=== PATIENT | female | born 1990 | race Caucasian/White ===

== ENCOUNTER 2022-05-11 11:55 | Emergency (ER) | payer BC, SELFPAY ==
--- NOTE | 2022-05-11 12:54 | ED.GENADULT ---
HPI - General Adult General Chief complaint: Upper Respiratory Infection Stated complaint: cold / flu symptoms Time Seen by Provider: 05/11/22 12:54 Source: patient Mode of arrival: ambulatory Limitations: no limitations History of Present Illness HPI narrative: 31-year-old female patient presents to the [facility] with complaints of cold and flu symptoms for the past 3 days. 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 Patient states she started having left-sided sore throat pain about 3 or 4 days ago and states that last night she woke up in a pool of sweat and today started running a fever of 101. Patient states she has had a slight cough and a lot of body aches does have body aches and between the shoulder blades. Patient denies any chest pain or shortness of breath. Denies any abdominal pain, nausea, vomiting or diarrhea. Related Data Allergies Allergy/AdvReac Type Severity Reaction Status Date / Time No Known Allergies Allergy Verified 05/11/22 12:50 Review of Systems Review of Systems: CONSTITUTIONAL: Positive fever, body exam chills, denies sweats. EYES: Denies visual changes, redness, or discharge. ENT: positive rhinorrhea, congestion, sore throat, denies otalgia. CARDIOVASCULAR: Denies chest pain, palpitations, or edema. RESPIRATORY: positive cough , denies dyspnea. GASTROINTESTINAL: Denies abdominal pain, nausea, vomiting, or diarrhea. GENITOURINARY: Denies dysuria or hematuria. SKIN: Denies rash or itching. MUSCULOSKELETAL: Denies back pain, joint pain, or myalgia. NEUROLOGIC: positive headache, numbness, or weakness. PSYCHIATRIC: Denies anxiety or depression. [facility] Past Medical History Medical History (Updated 05/11/22 @ 13:36 by JONATHON Chowdhury) Gestational diabetes Comments At the time of my signature I agree with nursing past medical history, surgical, social, and family history. There is no relevant family history pertinent to the presenting complaint. Exam Narrative: GENERAL: Well-appearing, well-nourished, and in no acute distress. HEAD: Normocephalic, atraumatic. EYES: PERRLA and EOMI. ENT: Nares with erythema and edema noted bilateral, no rhinorrhea or epistaxis. Mucous membranes moist. posterior pharynx with some erythema. No tonsillar enlargement no exudates or lesions present. Bilateral TMs are clear no erythema for buys the canal. NECK: Supple. No lymphadenopathy CHEST: Slight rhonchi noted to bilateral upper lobes. No respiratory distress. patient able talk clear complete sentences. HEART: Regular rate and rhythm. No murmur heard. Normal peripheral pulses. ABDOMEN: Soft, nontender, nondistended, normal active bowel sounds. EXTREMITIES: Normal range of motion. No edema. SKIN: Warm, dry, no rash. NEURO: No focal deficits. Alert and oriented x3. Course Course Level of Care: Express Care Visit Reevaluation(s) Reevaluation #1: Evaluated patient notified that she has tested negative for strep influenza and COVID in clinic today. We will send out a PCR test for COVID as well as a culture for strep since she is an ICU nurse. Discussed with patient that she will need to stay off work until she has been fever free for 24 hours. Patient verbalized understanding eyes any other questions or concerns at time. Date: 05/11/22 Time: 13:40 Vital Signs Vital signs: Vital signs reviewed. Medical Decision Making MDM Narrative Medical decision making narrative: Plan of care for patient is to swab her today for strep, influenza and COVID. Discussed with patient's the ER will re-evaluate her after the swabs have resulted. Differential Diagnosis Differential Diagnosis: differential diagnosis: Allergic rhinitis, chronic sinusitis, tonsillitis, acute sinusitis, infectious mononucleosis, seasonal influenza, pertussis, diphtheria, meningococcal disease, viral syndrome, viral bronchitis, RSV, COVID-19 Lab Data Labs: Influenza A Screen Negative
[2022-05-11 14:30] VITALS: BP 147/93; PULSE 99; RESP 16; TEMP 36.9; O2SAT 100
[2022-05-11 15:36] LABS: SARS-CoV-2 RNA PCR Negative
== END 2022-05-11 13:45 | disposition home or self-care (01) ==
PROVIDERS: Emergency Provider Nurse Practitioner Family; PCP Family Medicine
DX: J06.9 Acute upper respiratory infection, unspecified (principal); Z20.822 Contact with and (suspected) exposure to COVID-19
CPT/HCPCS: 87081; 87426; 87804; 87880; 99213; C9803; G0463; U0003; U0005

== ENCOUNTER 2024-07-07 00:44 | Observation (INO) | payer BC, SELFPAY ==
[2024-07-07] VITALS (15 sets, daily range): BP systolic 97–142; BP diastolic 40–94; PULSE 97–126; RESP 15–27; TEMP 36.1–36.7; O2SAT 96–99
--- NOTE | ~2024-07-07 | CT_ITS ---
EXAMINATION: CTA chest PE protocol DATE: 07/07/2024 09:18 INDICATION: Syncope and tachycardia TECHNIQUE: Computed tomography (CT) pulmonary angiogram of the chest was performed with 100 mL Omnipa que-350 intravenous contrast. Additional 3D reconstructions utilizing coronal maximum intensity proje ction (MIP) were performed. Automated exposure control and iterative reconstruction technique were em ployed. The dose-length product was 987.19 mGy-cm. COMPARISON: None FINDINGS: No pulmonary embolism. Sensitivity decreased in some of the smaller subsegmental pulmonary arteries d ue to some scattered respiratory motion artifact. Calcified nodules at the right upper lobe along wit h calcified right hilar and mediastinal lymph nodes consistent with old granulomatous disease. Small lung volumes with mosaic attenuation in the dependent lungs likely related to atelectasis with subseg mental regions of more lucent air trapping related to small airway disease. No pleural effusion or pn eumothorax. Heart size is normal. No pericardial effusion. Thoracic aorta is normal in caliber with n o dissection. No pathologically enlarged thoracic lymphadenopathy. Visualized upper abdomen is unrema rkable. Mild thoracic spondylosis. IMPRESSION: 1. No pulmonary embolism. 2. Mosaic attenuation in the lungs with small lung volumes which would favor atelectasis with mild ai r trapping related to small airway disease over pulmonary edema or pneumonia. Reviewed, dictated and finalized at location B. PAN MIXER IMPRESSION: 1. No pulmonary embolism. 2. Mosaic attenuation in the lungs with small lung volumes which would favor at electasis with mild air trapping related to small airway disease over pulmonary edema or pneumonia.
--- NOTE | ~2024-07-07 | CT_ITS ---
EXAMINATION: CT abdomen pelvis w con DATE: 07/07/2024 11:31 INDICATION: Tachycardia, syncope and nausea and vomiting. TECHNIQUE: Computed tomography (CT) of the abdomen and pelvis was performed with 100 mL Omnipaque-350 intravenous contrast. Automated exposure control and iterative reconstruction technique were employe d. The dose-length product was 1484.90 mGy-cm. COMPARISON: None FINDINGS: Lung bases are clear. Heart size is normal. No pericardial or pleural effusion. Liver, gallbladder, s pleen, pancreas, bilateral adrenal glands and left kidney are normal. There is a bipartite right harry l collecting system with separate ureters draining the upper and lower poles which appear to likely d iffuse near the ureterovesicular junction. Contrast-filled bladder is normal. T-shaped IUD in expecte d position within the anteverted uterus. Bilateral adnexa are unremarkable. Fluid throughout nondilat ed large and small bowel consistent with nonspecific diarrhea. No bowel obstruction. Normal appendix. No free intraperitoneal gas or fluid. No pathologically enlarged abdominal or pelvic lymphadenopathy . Bones are unremarkable. IMPRESSION: 1. Fluid throughout the nondilated bowels consistent with nonspecific diarrhea. No other acute intra- abdominal/pelvic process. 2. IUD in expected position within the anteverted uterus. 3. 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 Reviewed, dictated and finalized at location B. NOMETER ASSEMBLER IMPRESSION: 1. Fluid throughout the nondilated bowels consistent with nonspecific diarrhea. No other acute intra-abdominal/pelvic process. 2. IUD in expected position within the anteverted uterus. 3. Partially duplicated right renal collecting system with 2 separate right-janusz ed ureters which appear likely to fuse near the ureterovesicular junction.
--- OUTSIDE RECORDS SUMMARY | 2024-07-07 00:47 | XMS_ITS | Clinical Summary ---
Author Organization [facility] Address [address] [place]: Epic Prelude ADT [place] [id number] Care Team Providers Care Ophthalmic Assistant Name Role Phone Unavailable Primary Care Provider Unavailabl e Social History Tobacco Use Types Packs/Day Years Used Date Smoking Tobacco: Never Assessed Comments Unknown Sex and Gender Information Value Date Recorded Sex Assigned at Not on file Legal Sex Female 11:54 AM CDT Gender Identity Not on file Sexual Orientation Not on file Plan of Treatment Health Maintenance Due Date Last Done Comments DTAP/TDAP/TD VACCINES (1 - Tdap) 2009 HEPATITIS B VACCINES (1 of 3 - 19+ 3-dose series) 2009 CERVICAL CANCER SCREENING 01/04/20232019, 08/19/2018, 08/28/2017 INFLUENZA VACCINE (#1) 2023 HPV VACCINES Aged Out No longer eligi ble based on patient's age to complete this topic PNEUMOCOCCAL VACCINE 0-49 YEARS Aged Out No longer eligible b ased on patient's age to complete this topic
--- NOTE | 2024-07-07 01:56 | PC.NURSE ---
no answer in waiting room for vital signs
[2024-07-07 05:18] LABS: Hemoglobin 14.5 g/dL (12.0-15.0); Mean Corpuscular HGB Conc 33.7 g/dl (32-36); Mean Corpuscular Hemoglobin 28.3 pg (26-34); Mean Corpuscular Volume 83.8 fl (80-100); Mean Platelet Volume 10.3 fl (7.4-10.4); Platelet Count Result 230 k/mm3 (150-375); Red Blood Count 5.13 M/mm3 (4.2-5.4); Red Cell Distribution Width 12.6 % (11.5-14.5); White Blood Count 6.8 K/mm3 (4.5-10.0)
[2024-07-07] MEDS: SODIUM CHLORIDE 0.9% IV 1,000 ML 999 ML IV CONT ×3 (05:21→10:10)
[2024-07-07 05:37] LABS: Alanine Aminotransferase 34 U/L (6-35); Albumin Level 4.8 g/dL (3.5-5.1); Alkaline Phosphatase 70 U/L (38-126); Anion Gap 14 mmol/L (4-12); Aspartate Amino Transferase 22 U/L (14-36); Bilirubin,Total 0.8 mg/dL (0.2-1.3); Blood Urea Nitrogen 14 mg/dL (7-17); Calcium 9.2 mg/dL (8.4-10.2); Carbon Dioxide 26 mmol/L (22-30); Chloride 101 mmol/L (98-107); Estimated CRCL calculation 93 ml/min; Estimated Glomerular Filt Rate > 60; Glucose 135 mg/dL (65-110); Lipase 97 U/L (23-300); Sodium 141 mmol/L (137-145)
[2024-07-07 05:41] LABS: Band Neutrophils Percent 6 % (0-6); Lymphocytes Percent Manual 3 % (18-44); Monocytes Absolute Manual 0.27 K/mm3 (0.1-0.90); Monocytes Percent Manual 4 % (3-9); Neutrophils Absolute Manual 6.32 K/mm3 (1.7-7.2); Neutrophils Percent Manual 87 % (46-73); Platelet Estimate Adequate (Adequate); Schistocytes None Seen; Total Cells Counted 100
[2024-07-07 06:06] LABS: Influenza A QL RT-PCR Negative (Negative); Influenza B QL RT-PCR Negative (Negative); RSV RNA, RT-PCR Negative (Negative); SARS-CoV-2 RNA PCR Negative (Negative)
[2024-07-07 06:31] LABS: BEDSIDEPREGUCG Negative (Negative)
[2024-07-07 06:31] LABS: Add Urine Microscopic? NO; Appearance Urine Clear (Clear); Bilirubin Urine Negative (Negative); Blood Urine Negative (Negative); Color Urine Yellow (Yellow); Glucose Urine UA Negative (Negative); Ketones Urine Negative (Negative); Leukocyte Esterase Ur Negative LEU/UL (Negative); Nitrate Urine Negative (Negative); Protein Urine Negative (Negative); Specific Grav Ur 1.021 (1.001-1.035); Urobilinogen Urine 0.2 mg/dL (<2.0); pH Urine 8.5 (5.0-9.0)
--- NOTE | 2024-07-07 07:06 | ECG_ITS ---
Test Date: 2024-07-07 07:47:42 Measurements Intervals [place] Rate: 109 P: 85 IA: 151 QRS: 31 QRSD: 81 T: -4 QT: 330 QTc: 446 Interpretive Statements SINUS TACHYCARDIA INCOMPLETE RIGHT BUNDLE BRANCH BLOCK MODERATE T-WAVE ABNORMALITY, CONSIDER ANTERIOR ISCHEMIA [-0.1+ mV T WAVE IN V3/V4] No previous ECG available for comparison Electronically Signed On 07-07-2024 15:46:30 [address] DRIVER by Berenice Moura M.D.
--- NOTE | 2024-07-07 07:21 | ED_ITS ---
HPI - General Adult General Chief complaint: Nausea/Vomiting/Diarrhea Stated complaint: vomiting, syncope Time Seen by Provider: 07/07/24 06:59 History of Present Illness HPI narrative: 33-year-old female presented emergency department for evaluation for nausea vomiting and a syncopal episode. Patient reports that she was having increased symptoms of bloating and lightheadedness. Patient states that while she was in the shower she had a near syncopal episode. Patient reports after vomiting she had a 2nd syncopal episode. Patient denies any associated abdominal pain. Patient denies any medication changes. Patient denies any cardiac history. Patient states he does feel improved at this time it does still have some mild nausea. Related Data Home Medications ?Medication ?Instructions ?Recorded ?Confirmed ?Last Taken ?Type No Home Medications 07/07/24 07/07/24 Unknown History Allergies Allergy/AdvReac Type Severity Reaction Status Date / Time cephalexin (From Keflex) Allergy Hives Verified 07/07/24 13:25 Review of Systems 2 Review of Systems: All systems reviewed & are unremarkable except as noted in HPI and below PMFSH Past Medical History Medical History (Updated 07/07/24 @ 18:10 by Aric Stringer MD) Gestational diabetes Social History Social History Smoking status: Never smoker Alcohol intake: never Substance use: never Substance use type: does not use Do You Feel Safe in your Home?: Yes Lack of Transportation: No Lack of Food: Never True Current Housing: I Have Housing Concerned About Future Housing: No Difficulty Paying Gas/Electric Bills: No Difficulty Paying for Meds: No Currently Unemployed: No Education: Bachelor's Degree Difficulty w/ Childcare or Family Care: No Spiritual care concerns: No Exam 2 Narrative: APPEARANCE: Well appearing, no pain, no distress, well-nourished. HEAD: normocephalic, atraumatic. EYES: PERRLA/EOMI, conjunctivae clear. NOSE: Normal no drainage EARS:TMS clear with good light reflex. THROAT: Pharynx clear, no exudate. NECK: Supple. No adenopathy, no masses. RESPIRATORY: Airway patent, respirations nonlabored. Clear to auscultation bilaterally, no rales, rhonchi, wheezing. CARDIOVASCULAR: Tachycardia ABDOMINAL: Soft, nontender, nondistended, normal bowel sounds MUSCULOSKELETAL: Moves all extremities. Strength/ROM intact, No edema, No calf tenderness. NEURO: Alert. Cranial nerves II through XII intact. Good gait. Good coordination SKIN: Warm, dry. Normal Color Course Vital Signs Vital signs: Vital Signs Temperature 97.8 F 07/07/24 00:48 Pulse Rate 102 H 07/07/24 00:48 Respiratory Rate 18 07/07/24 00:48 Blood Pressure 140/90 07/07/24 00:48 Pulse Oximetry 99 07/07/24 00:48 Oxygen Delivery Room Air 07/07/24 00:48 Temperature 97.4 F L 07/07/24 14:00 Pulse Rate 118 H 07/07/24 16:00 Respiratory Rate 18 07/07/24 14:00 Blood Pressure 142/85 H 07/07/24 14:00 Pulse Oximetry 98 07/07/24 14:00 Oxygen Delivery Room Air 07/07/24 13:34 Medical Decision Making MDM Narrative Medical decision making narrative: 33-year-old female present to the emergency department for evaluation for nausea vomiting and to syncopal episodes. Patient remained persistently tachycardic after 3 L of IV fluids. Patient is afebrile with no leukocytosis and hemoglobin of 14.5. Prior to rehydration patient did have an anion gap of 14 at glucose of 135. Patient did not have any ketones in her urine low concern for DKA. Patient was negative for influenza RSV and for COVID. CTA for chest was negative for pulmonary embolism. Hospitalist requested that a CT abdomen pelvis be ordered and this was negative. I discussed the patient's results with her and did recommend admission. Case was discussed with hospitalist patient was accepted to [facility]. Differential Diagnosis Differential Diagnosis: COVID, RSV, influenza, pulmonary embolism, dehydration Vital Signs Vital Signs: Vital Signs Temperature 97.8 F 07/07/24 00:48 Pulse Rate 102 H 07/07/24 00:48 Respiratory Rate 18 07/07/24 00:48 Blood Pressure 140/90 07/07/24 00:48 Pulse Oximetry 99 07/07/24 00:48 Oxygen Delivery Room Air 07/07/24 00:48 Temperature 97.4 F L 07/07/24 14:00 Pulse Rate 118 H 07/07/24 16:00 Respiratory Rate 18 07/07/24 14:00 Blood Pressure 142/85 H 07/07/24 14:00 Pulse Oximetry 98 07/07/24 14:00 Oxygen Delivery Room Air 07/07/24 13:34 Lab Data Lab results reviewed: Yes I reviewed the patient's lab results. 07/07/24 05:13 07/07/24 05:13 Labs: Lab Results 07/07/24 07/07/24 07/07/24 Range/Units 05:13 05:23 06:24 WBC 6.8 (4.5-10.0) K/mm3 RBC 5.13 (4.2-5.4) M/mm3 Hgb 14.5 (12.0-15.0) g/dL Hct 43.0 (37.0-47.0) % MCV 83.8 (80-100) fl MCH 28.3 (26-34) pg MCHC 33.7 (32-36) g/dl RDW 12.6 (11.5-14.5) % Plt Count 230 (150-375) k/mm3 MPV 10.3 (7.4-10.4) fl Immature Gran % (Auto) Not Reportable Neut % (Auto) Not Reportable Lymph % (Auto) Not Reportable [place] % (Auto) Not Reportable Eos % (Auto) Not Reportable Baso % (Auto) Not Reportable Lymph # (Auto) Not Reportable [place] # (Auto) Not Reportable Eos # (Auto) Not Reportable Baso # (Auto) Not Reportable Abs Immat Gran (auto) Not Reportable Absolute Neuts (auto) Not Reportable Absolute Nucleated RBC Not Reportable Total Counted 100 Neutrophils % (Manual) 87 H (46-73) % Band Neutrophils % 6 (0-6) % Lymphocytes % (Manual) 3 L (18-44) % Monocytes % (Manual) 4 (3-9) % Nucleated RBC % Not Reportable Abs Neuts (Manual) 6.32 (1.7-7.2) K/mm3 Abs Lymphs (Manual) 0.20 L (1.1-4.5) K/mm3 Abs Monocytes (Manual) 0.27 (0.1-0.90) K/mm3 Platelet Estimate Adequate (Adequate) Schistocytes None seen Sodium 141 (137-145) mmol/L Potassium 4.0 (3.4-5.0) mmol/L Chloride 101 (98-107) mmol/L Carbon Dioxide 26 (22-30) mmol/L Anion Gap 14 H (4-12) mmol/L BUN 14 (7-17) mg/dL Creatinine 0.88 (0.7-1.0) mg/dL Estim Creat Clear Calc 93 ml/min Estimated GFR > 60 (59 - ) Glucose 135 H (65-110) mg/dL Calcium 9.2 (8.4-10.2) mg/dL Total Bilirubin 0.8 (0.2-1.3) mg/dL AST 22 (14-36) U/L ALT 34 (6-35) U/L Alkaline Phosphatase 70 (38-126) U/L Total Protein 8.0 (6.3-8.2) g/dL Albumin 4.8 (3.5-5.1) g/dL Lipase 97 (23-300) U/L TSH (Reflex) 0.307 L (0.465-4.68) uIU/mL Free T4 1.22 (0.78-2.19) ng/dL Total T3 1.32 (0.97-1.69) NG/ML Urine Color Yellow (Yellow) Urine Appearance Clear (Clear) Urine pH 8.5 (5.0-9.0) Ur Specific [place] 1.021 (1.001-1.035) Urine Protein Negative (Negative) mg/dL Urine Glucose (UA) Negative (Negative) mg/dL Urine Ketones Negative (Negative) mg/dL Ur Blood (Man) Negative (Negative) Urine Nitrate Negative (Negative) Urine Bilirubin Negative (Negative) Urine Urobilinogen 0.2 (<2.0) mg/dL Leukocyte Esterase Rfl Negative (Negative) RONDA/UL POC Urine HCG, Qual (Negative) Influenza A (RT-PCR) Negative (Negative) Influenza B (RT-PCR) Negative (Negative) RSV (RT-PCR) Negative (Negative) SARS-CoV-2 RNA (RT-PCR) Negative (Negative) 07/07/24 Range/Units 06:29 WBC (4.5-10.0) K/mm3 RBC (4.2-5.4) M/mm3 Hgb (12.0-15.0) g/dL Hct (37.0-47.0) % MCV (80-100) fl MCH (26-34) pg MCHC (32-36) g/dl RDW (11.5-14.5) % Plt Count (150-375) k/mm3 MPV (7.4-10.4) fl Immature Gran % (Auto) Neut % (Auto) Lymph % (Auto) [place] % (Auto) Eos % (Auto) Baso % (Auto) Lymph # (Auto) [place] # (Auto) Eos # (Auto) Baso # (Auto) Abs Immat Gran (auto) Absolute Neuts (auto) Absolute Nucleated RBC Total Counted Neutrophils % (Manual) (46-73) % Band Neutrophils % (0-6) % Lymphocytes % (Manual) (18-44) % Monocytes % (Manual) (3-9) % Nucleated RBC % Abs Neuts (Manual) (1.7-7.2) K/mm3 Abs Lymphs (Manual) (1.1-4.5) K/mm3 Abs Monocytes (Manual) (0.1-0.90) K/mm3 Platelet Estimate (Adequate) Schistocytes Sodium (137-145) mmol/L Potassium (3.4-5.0) mmol/L Chloride (98-107) mmol/L Carbon Dioxide (22-30) mmol/L Anion Gap (4-12) mmol/L BUN (7-17) mg/dL Creatinine (0.7-1.0) mg/dL Estim Creat Clear Calc ml/min Estimated GFR (59 - ) Glucose (65-110) mg/dL Calcium (8.4-10.2) mg/dL Total Bilirubin (0.2-1.3) mg/dL AST (14-36) U/L ALT (6-35) U/L Alkaline Phosphatase (38-126) U/L Total Protein (6.3-8.2) g/dL Albumin (3.5-5.1) g/dL Lipase (23-300) U/L TSH (Reflex) (0.465-4.68) uIU/mL Free T4 (0.78-2.19) ng/dL Total T3 (0.97-1.69) NG/ML Urine Color (Yellow) Urine Appearance (Clear) Urine pH (5.0-9.0) Ur Specific [place] (1.001-1.035) Urine Protein (Negative) mg/dL Urine Glucose (UA) (Negative) mg/dL Urine Ketones (Negative) mg/dL Ur Blood (Man) (Negative) Urine Nitrate (Negative) Urine Bilirubin (Negative) Urine Urobilinogen (<2.0) mg/dL Leukocyte Esterase Rfl (Negative) RONDA/UL POC Urine HCG, Qual Negative (Negative) Influenza A (RT-PCR) (Negative) Influenza B (RT-PCR) (Negative) RSV (RT-PCR) (Negative) SARS-CoV-2 RNA (RT-PCR) (Negative) Imaging Data Radiologist's impression: Impressions Chest CTA 07/07/24 09:26 IMPRESSION: 1. No pulmonary embolism. 2. Mosaic attenuation in the lungs with small lung volumes which would favor atelectasis with mild air trapping related to small airway disease over pulmonary edema or pneumonia. Discharge Plan Discharge Clinical Impression: Syncope, Tachycardia, Gastroenteritis Patient Disposition: Still a Patient Condition: Stable
[2024-07-07] MEDS: ONDANSETRON INJ 4 MG/2 ML VIAL IV PUSH (07:23)
--- OUTSIDE RECORDS SUMMARY | 2024-07-07 07:29 | XMS_ITS | Encounter Summary ---
Author Organization [facility] Address [address] [place] [address] Care Team Providers Care Progressive Care Manager Name Role Phone Carmela Jacinto [facility] Primary Care Provider + Encounter Details Date Type Department Care Team (Late st Contact Info) Description 07/16/2023 [employer] Message Enc [facility] Family & Internal Medicine [address] [phone] Carmela Jacinto, [facility] [id number] [place] [id number] [employer] Social History Tobacco Use Types Packs/Day Years Used Date Smoking Tobacco: Never Smokeless Tobacco: Never Alcohol Use Standard Drinks/Week Comments Not Currently 0 (1 standard drink = 0.6 oz pur e alcohol) AUDIT-C Answer Date Recorded Frequency of Alcohol Consumption 2-4 times a fri08/01/2020 Average Number of Drinks Not on file 021 Frequency of Binge Drinking Not on file 07/05 PHQ-2 Answer Date Recorded Patient Health Questionnaire-2 Score 0 07/07/2023 Comments No Sex and Gender Information Value Date Recorded Sex Assigned at Female 07/04/2023 12:36 PM ASSOCIATE Legal Sex Female 8:25 PM CDT Gender Identity Female 07/04/2023 12:36 PM ASSOCIATE Sexual Orientation Straight 07/04/2023 12 :36 PM ASSOCIATE documented as of this encounter Functional Status * RETIRED Are you deaf or do you have serious difficulty hearing Answer Date of Assessment Author Status No 09/19/2020 11:48 AM CDT Acti ve * RETIRED Are you blind or do you have serious difficulty seeing, even when wearing glasses? Answer Date of Assessment Author Status No 09/19/2020 11:48 AM CDT Acti ve * Do you have serious difficulty walking or climbing stairs? Answer Date of Assessment Author Status No 09/19/2020 11:48 AM CDT Kendra Bledsoe R N Active * Do you have difficulty dressing or bathing? Answer Date of Assessment Author Status No 09/19/2020 11:48 AM CDT Kendra Bledsoe R N Active * Because of a physical, mental, or emotional condition, do you have difficulty doing errands alone such as visiting a doctor's office or shopping? Answer Date of Assessment Author Status No 09/19/2020 11:48 AM CDT Kendra Bledsoe R N Active documented as of this encounter Mental Status * Because of a physical, mental, or emotional condition, do you have serious difficulty concentrating, remembering, or making decisions? Answer Entry Date Author Status No 09/19/2020 11:48 AM CDT Kendra Bledsoe R N Active documented in this encounter Progress Notes * NATAN Beyer - 07/23/2023 5:10 PM CDT Since it would be for weight loss, she would have to do Zepbound. It may not be covered by her insurance or need a prior authorization. You can try 2.5 mg sq inj once weekly x 4 weeks, qty 2 mL, no refills. Smaller/independent pharmacies may have an easier time getting the saxenda. Alternatively, you can sometimes find it through mail order or [facility]. * Kari Rodas RN - 07/23/2023 4:21 PM CDT Please advise. documented in this encounter Plan of Treatment Not on file documented as of this encounter Goals Goal Patient Goal Type Associated Problems Recent Progress Patient-Stated? Author Safety Patient/family will have appropriate support at home upon discharge Brianna Jansen RN documented as of this encounter Visit Diagnoses Not on filedocumented in this encounter Additional Health Concerns Infection Onset Date Last Indicated Resolved Time COVID-19 Rule Out 11/18/2023 11/18/2023 11/18/2023 2:45 PM CDT documented as of this encounter Care Teams Progressive Care Manager Relationship Specialty Start Date End Date Carmela Jacinto, [employer] [id number] [facility], [address] [place] [address] PCP - General Nurse Practitioner Family 12/26/22 documented as of this encounter
--- OUTSIDE RECORDS SUMMARY | 2024-07-07 07:29 | XMS_ITS | Clinical Summary ---
Author Organization [facility] Address [address] [place] [address] Care Team Providers Care Chemist Water Purification Name Role Phone Carmela Jacinto [facility] Primary Care Provider + Allergies Active Allergy Reactions Criticality Noted Date Comments Cephalexin Rash Low 06/03/2018 Medications multi vitamin/minerals (THERA-M ENHANCED) tablet Take 1 tablet by mouth daily. Active Multiple Vitamins-Mineral s (MEGAVITE FRUITS & VEGGIES OR) Take 1 tablet by mouth daily. Active liraglutide, Weight Management, (SAXENDA) 18 MG/3ML injectionIndicat ions:Class 3 severe obesity due to excess calories without serious comorbidity with body mass index (BMI) of 40.0 to 44.9 in adult ([facility]) Inject 0.1-0.5 mLs (0.6-3 mg total) into the skin daily. Start With: 0.6 mg (0.1 mL) SC once daily x7 days, then 1.2 mg (0.2 mL) SC once daily x7 days, then 1.8 mg (0.3 mL) SC once daily x 7 days, then 2.4 mg (0.4 mL) SC once daily x 7 days, then 3 mg (0.5 mL) SC once daily. 5 pen. 1 Active Additional Information Patient not taking.Reported on 11/18/2023 Insulin Pen Needle (BD PEN NEEDLE SHAYNE 2ND GEN) 32G X 4 MM MiscIndications: Class 3 severe obesity due to excess calories without serious comorbidity with body mass index (BMI) of 40.0 to 44.9 in adult ([facility]) 1 each by Does not apply route daily. 100 each 3 4 Active Additional Information Patient not taking.Reported on 11/18/2023 azithromycin (ZITHROMAX) 250 MG tabletIndication s:Bronchitis Take 2 tablets by mouth on day one then 1 daily for four days. 6 tablet 4 Active benzonatate (TESSALON PERLES) 100 MG capsuleIndicatio ns:Bronchitis Take 1 capsule (100 mg total) by mouth 3 (three) times daily as needed for Cough. 40 capsule 4 Active Active Problems No known active problems Resolved Problems Problem Noted Date Diagnosed Date Resolved Date ([facility]) 09/19/2020 06/30/19 23 History of mastitis 07/15/2018 06/30/19 23 Abnormal ultrasound of breast 07/15/2018 06/30/2022 Mastitis 06/03/2018 07/15/2018 Axillary lump, right 06/03/2018 019 Rash due to allergy 06/03/2018 06/30/19 23 Immunizations Name Administration Dates Next Due Afluria 36 MONTHS+ (Prefille d Syringe IIV4) 02/22/2019 Influenza (Generic) 01/22/2013 Influenza Adult (Generic) 02/21/2023,05/2021,03/10/2020, 015 Tdap (Generic) 07/04/2020,07/13/2018 Family History Medical History Relation Comments None Brother None Daughter Hypertension Father Hypertension Maternal Grandfather Narcolepsy Maternal Grandfather Cancer Maternal Grandmother Brain Lymph jenni Lymphoma Maternal Grandmother metastatize d to brain Depression Mother Hypertension Mother Diabetes Paternal Grandfather Hypertension Paternal Grandfather Dementia Paternal Grandmother Depression Paternal Grandmother Diabetes Paternal Grandmother Hypertension Paternal Grandmother Kidney Disease Paternal Grandmother small kidne y; CKD3 Relation Status Comments Brother Alive Daughter Alive Father Alive Maternal Grandfather Alive Maternal Grandmother Mother Alive Paternal Grandfather Alive Paternal Grandmother Alive Social History Tobacco Use Types Packs/Day Years Used Date Smoking Tobacco: Never Smokeless Tobacco: Never Tobacco Cessation:Counseling Given: No Alcohol Use Standard Drinks/Week Comments Not Currently 0 (1 standard drink = 0.6 oz pur e alcohol) AUDIT-C Answer Date Recorded Frequency of Alcohol Consumption 2-4 times a mon th 08/01/2020 Average Number of Drinks Not on file 021 Frequency of Binge Drinking Not on file 07/05 PHQ-2 Answer Date Recorded Patient Health Questionnaire-2 Score 0 07/07/2023 Comments No Sex and Gender Information Value Date Recorded Sex Assigned at Female 07/04/2023 12:36 PM POLICE SERVICE TECHNICIAN Legal Sex Female 8:25 PM CDT Gender Identity Female 07/04/2023 12:36 PM POLICE SERVICE TECHNICIAN Sexual Orientation Straight 07/04/2023 12 :36 PM POLICE SERVICE TECHNICIAN Last Filed Vital Signs Vital Sign Reading Time Taken Comments Blood Pressure 136/82 11/18/2023 2:14 PM CDT Pulse 93 11/18/2023 2:08 PM CDT Temperature 36.4 C (97.6 F) 11/18/2023 2:08 PM CDT Respiratory Rate 18 11/18/2023 2:08 PM CDT Oxygen Saturation 99% 11/18/2023 2:08 PM CDT Inhaled Oxygen Concentration - - Weight 110.5 kg (243 lb 9.6 oz) 11/18/2023 2:08 PM CDT Height 157.5 cm (5' 2 ) 11/18/2023 2:08 PM CDT Body Mass Index 44.56 11/18/2023 2:08 PM CDT Plan of Treatment Health Maintenance Due Date Last Done Comments Hepatitis B Vaccines (1 of 3 - 19+ 3-dose series) 2009 Cervical Cancer Screening Pap with HPV Testing (Age 30 to 64) Every 5 Years 2020 Cervical Cancer Screening Pap Smear (Age 30 to 64) Every 3 Years 01/04/2023 01/05/2020 Cervical Cancer Screening with HPV 01/04/2023 COVID-19 Vaccine ( season) 2024 Influenza Adult (#1) 2024 02/21/2023, 02/02/2022, 03/10/2020, Additional history exists PHQ-2 (Physician [place]) 05/05/2024 07/07/2023 Annual Physical 07/06/2024 07/07/2023, 06/20/2022 DTaP, Tdap and Td Vaccines (3 - Td or Tdap) 07/04/2030 07/04/2020, 07/13/2018 Hepatitis C Completed 07/07/2023 HPV Vaccines Aged Out No longer eligi ble based on patient's age to complete this topic Meningococcal B Vaccine Aged Out No l onger eligible based on patient's age to complete this topic Meningococcal Vaccine Aged Out No dax eunice eligible based on patient's age to complete this topic Pneumococcal Vaccine: Pediatrics (0 to 5 Years) and At-Risk Patients (6 to 64 Years) Aged Out No longer eligible based on patient's age to complete this topic RSV Immunizations Under 20 Months Aged Out No longer eligible based on patient's age to complete this topic Goals Goal Patient Goal Type Associated Problems Recent Progress Patient-Stated? 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 Procedure Name Priority Date/Time Associated Diagnosis Comments HEPATITIS C ANTIBODY Routine 07/07/2023 11:36 AM POLICE SERVICE TECHNICIAN Encounter for hepatitis C screening test for low risk patient OUTSIDE CYTOPATH CERV/VAG INTERPRET (PAP) (SCAN ORDER) 01/05/2020 from Last 3 Months or Most Recently Relevant to Health Maintenance Results * HEPATITIS C AB ([facility] ONLY) (07/07/2023 11:36 AM POLICE SERVICE TECHNICIAN) HEPATITIS C AB NON-REACTI VE NON-REACTI VE 07/07/2023 8:16 PM POLICE SERVICE TECHNICIAN [facility] 07/07/2023 11:3 6 AM POLICE SERVICE TECHNICIAN us Carmela Jacinto [facility] Final Re sult [facility] [address] [place] [address], [place] [phone] * PAP SMEAR (01/05/2020) 01/05/2020 us [facility] Scanned SCANNING Final Resu lt from Last 3 Months or Most Recently Relevant to Health Maintenance Insurance Advance Directives * Full Code (Latest Code Status on File) Date Activated Date Inactivated Comments 09/19/2020 2:26 PM 09/21/2020 3:43 PM Care Teams Chemist Water Purification Relationship Specialty Start Date End Date Carmela Jacinto, DEMOLITION ENGINEER-BC [id number], [address] [place] [address] PCP - General Nurse Practitioner Family 12/26/22
--- OUTSIDE RECORDS SUMMARY | 2024-07-07 07:29 | XMS_ITS | Clinical Summary ---
Author Organization [facility] Address [address] [place]: Epic Prelude ADT [place] [id number] Care Team Providers Care Professional Shopper Name Role Phone Unavailable Primary Care Provider [...]
--- NOTE | 2024-07-07 09:52 | PC.NURSE ---
Ambulated pt while monitoring pulse ox and HR. pt's maintained a Sp02 of 98% or greater. pt's HR maintained 130's-140's. Reported to
[2024-07-07] MEDS: KETOROLAC 15 MG/ML VIAL (*BKC) (10:10)
[2024-07-07 11:07] LABS: Thyroid Stimulating Hormone Reflex 0.307 uIU/mL (0.465-4.68)
[2024-07-07 11:34] LABS: Free T4 Free Thyroxine Reflex 1.22 ng/dL (0.78-2.19)
[2024-07-07] MEDS: LACTATED RINGERS 1,000 ML 125 ML IV CONT ×2 (12:33→22:54)
[2024-07-07 12:48] LABS: Total Triiodothyronine (T3) 1.32 NG/ML (0.97-1.69)
--- NOTE | 2024-07-07 13:10 | ADMGEN ---
This patient, Brianna Peck, was admitted to Medical Room 246-01. Patient/family oriented to hospital policies and general routines including ID bracelet, bed and alarms, visiting hours, pain management, procedures, bathroom and other care routines, personal items, smoking policy, room service/diet, and visiting hours. Information on how to activate the Rapid Response Team has been discussed. Patient/Family are encouraged to report perceived risks to care and to ask questions if they do not understand what they are told or what they should do.
--- NOTE | 2024-07-07 16:06 | P.HP_ITS ---
H&P: HPI History of Present Illness Date/Time: 07/07/24 16:06 Chief Complaint: Vomiting and syncope Narrative: 33-year-old female past medical history of asthma presented to urine account of 2 episodes of syncope and vomiting. Patient reported she was in her usual state of health until yesterday when she had a huge 3 episodes of vomiting followed by 2 episodes of syncope. For this she was brought to the ER for further evaluation and care. Prior to that she denies any chest pain or shortness of breath no coughing no fever no abdominal pain no dysuria no focal symptoms. She also reported she has been havin diarrhea since today and had 2 episodes. ER eval notable for HR 126, BP 139/94. Labs unremarkable, CT chest showed and showed was like attenuation in the lungs with small lung volumes which would favor atelectasis with mild air trapping related to small airway disease overt pulmonary edema or pneumonia. CT abdomen and pelvis showed fluid throughout to nondilated most consistent with nonspecific diarrhea. Patient was given 3 L of fluids still tachycardic. EKG showed ST no acute changes. Review of Systems Review of Systems: All other systems were reviewed and negative except as noted in the HPI above [facility] Past Medical History Medical History (Updated 07/07/24 @ 16:15 by Pedro Samayoa MD) Gestational diabetes Social History Social History Smoking status: Never smoker Alcohol intake: never Substance use: never Substance use type: does not use Do You Feel Safe in your Home?: Yes Lack of Transportation: No Lack of Food: Never True Current Housing: I Have Housing Concerned About Future Housing: No Difficulty Paying Gas/Electric Bills: No Difficulty Paying for Meds: No Currently Unemployed: No Education: Bachelor's Degree Difficulty w/ Childcare or Family Care: No Spiritual care concerns: No Meds Home Medications and Allergies Home Medications ?Medication ?Instructions ?Recorded ?Confirmed ?Type No Home Medications 07/07/24 07/07/24 History Allergies Allergy/AdvReac Type Severity Reaction Status Date / Time cephalexin (From Keflex) Allergy Hives Verified 07/07/24 13:25 Vital Signs Vital Signs - 24 hr 07/07/24 00:48 07/07/24 05:15 07/07/24 05:17 Temperature 97.8 F 98.1 F Pulse Rate 102 H 114 H Respiratory Rate 18 15 Blood Pressure 140/90 129/84 Pulse Oximetry 99 96 96 Oxygen Delivery Room Air Room Air 07/07/24 06:11 07/07/24 06:24 07/07/24 06:25 Temperature Pulse Rate 105 H 110 H 115 H Respiratory Rate 16 Blood Pressure 137/88 118/60 135/70 Pulse Oximetry 99 Oxygen Delivery 07/07/24 06:26 07/07/24 07:02 07/07/24 08:02 Temperature Pulse Rate 125 H 114 H 105 H Respiratory Rate 27 H 22 H Blood Pressure 137/92 H 121/81 124/62 Pulse Oximetry 99 Oxygen Delivery 07/07/24 09:50 07/07/24 12:34 07/07/24 13:34 Temperature Pulse Rate 126 H 125 H Respiratory Rate 20 19 Blood Pressure 113/83 139/94 H Pulse Oximetry 98 97 Oxygen Delivery Room Air 07/07/24 14:00 Temperature 97.4 F L Pulse Rate 119 H Respiratory Rate 18 Blood Pressure 142/85 H Pulse Oximetry 98 Oxygen Delivery Exam Narrative: General: alert and comfortable Eyes: EOMI, PERRLA ENNT External ears normal, Neck is supple, no masses, Respiratory systems: Clear to auscultation Cardiovascular S1, S2, normal rhythm, no murmur, rub, or gallop; no thrill or palpable murmurs on palpation. Gastrointestinal: soft, non-tender, and non-distended abdomen with no masses; BS present Skin: no rash, lesions, ulcerations, subcutaneous nodules or induration Musculoskeletal: no abnormality and no tenderness, normal ROM Neurologic: Alert and oriented x3, non focal Mental Status Exam: normal affect H&P: Results Labs Labs: Short CBC 07/07/24 Range/Units 05:13 WBC 6.8 (4.5-10.0) K/mm3 Hgb 14.5 (12.0-15.0) g/dL Hct 43.0 (37.0-47.0) % Plt Count 230 (150-375) k/mm3 BMP 07/07/24 05:13 Sodium 141 Potassium 4.0 Chloride 101 Carbon Dioxide 26 BUN 14 Creatinine 0.88 Glucose 135 H Calcium 9.2 Liver Function 07/07/24 Range/Units 05:13 Total Bilirubin 0.8 (0.2-1.3) mg/dL AST 22 (14-36) U/L ALT 34 (6-35) U/L Alkaline Phosphatase 70 (38-126) U/L Albumin 4.8 (3.5-5.1) g/dL Urine 07/07/24 Range/Units 06:24 Urine Color Yellow (Yellow) Urine Appearance Clear (Clear) Urine pH 8.5 (5.0-9.0) Ur Specific [place] 1.021 (1.001-1.035) Urine Protein Negative (Negative) mg/dL Urine Glucose (UA) Negative (Negative) mg/dL Assessment and Plan Assessment and plan (1) Syncope: Code(s): R55 - Syncope and collapse Status: Acute (2) Tachycardia: Code(s): R00.0 - Tachycardia, unspecified Status: Acute Plan Syncope Severe likely from dehydration Preceded by vomiting Continue IV fluid, apical ordered. EKG shows sinus tachycardia no acute changes. Cardiology consulted. Possible CT scan showed a possible small airway disease versus pulmonary edema Since patient is on which were this time. Sputum and blood culture, MRSA and procalcitonin Levaquin Monitor Tachycardia EKG showed ST ?arrhythmia cardiology consulted History of asthma Monitor DVT prophylaxis subQ Lovenox. Patient's Surrogate decision maker is , Vernon Peck
[2024-07-07] MEDS: levoFLOXacin 750 MG/D5W 150 ML 750 MG/150 ML BAG 100 MG IVPB (16:39)
[2024-07-07 17:59] LABS: MRSA (PCR) NOT DETECTED (NOT DETECTE)
[2024-07-07 19:03] LABS: Procalcitonin 0.4 ng/mL
[2024-07-08] VITALS (7 sets, daily range): BP systolic 123–128; BP diastolic 73–74; PULSE 75–85; RESP 18; TEMP 36.5–36.6; O2SAT 98–99
--- NOTE | 2024-07-08 | ECHO_ITS ---
Patient Info Name: Brianna Peck Age: 33 years : 1990 Gender: Female Ht: 62 in Wt: 243 lbs BSA: 2.26 m2 HR: 83 bpm BP: 128 / 74 mmHg Heart Rhythm: Sinus Arrhythmia Exam Date: 07/08/2024 10:51 AM Exam Location: Echo Lab Patient Status: Inpatient Admit Date: 07/07/2024 Staff Ordering Physician: Pedro Samayoa MD Science Instructor: Bria Avalos RDCS Attending Provider: Pedro Samayoa MD Exam Type: CA echo doppler color flow Study Info Indications - Arrythmia Complete two-dimensional, color flow and Doppler transthoracic echocardiogram is performed. Summary 1. Complete two-dimensional, color flow and Doppler transthoracic echocardiogram is performed. 2. There is normal biventricular size and systolic function. 3. There is no significant valvular disease. Left Ventricle The left ventricle is normal in size and systolic function. The left ventricular ejection fraction is visually estimated to be 55-60%. Right Ventricle The right ventricle is normal in size and systolic function. Left Atria The left atrium is normal size. Right Atria The right atrium is normal size. Atrial Septum The atrial septum is not well visualized. Aortic Valve It is difficult to visualize the aortic valve however by color Doppler gradients, it appears to be a normal functioning valve. Pulmonic Valve The pulmonic valve is grossly normal. There is no pulmonic valve regurgitation. Mitral Valve The mitral valve is normal. There is no mitral regurgitation. Tricuspid Valve The tricuspid valve is normal. There is trace tricuspid regurgitation. Pericardium/Pleural Pericardium is normal in appearance with no evidence for significant pericardial effusion. Inferior Vena Cava Normal inferior vena cava with >50% collapse upon inspiration consistent with normal right atrial pressure, 3 mmHg. Normal inferior vena cava with >50% collapse upon inspiration consistent with normal right atrial pressure, 3 mmHg. Aorta The aortic root at the level of the sinus of Valsalva measures 2.4 cm in diameter. Left Ventricular Outflow Tract Name Value Normal LVOT 2D LVOT Diameter 2.0 cm LVOT Doppler LVOT Peak Gradient 4 mmHg LVOT Mean Gradient 2 mmHg LVOT VTI 21 cm LVOT VTI/AV VTI Ratio 0.8 LVOT Stroke Volume 69 ml LVOT CO 5.2 l/min LVOT CI 2.3 l/min/m2 Pulmonic Valve Name Value Normal RVOT Doppler RVOT Peak Gradient 2 mmHg PV Doppler PV Peak Gradient 3 mmHg Mitral Valve Name Value Normal MV Doppler MV Decel Lamb 513 cm/s2 MV PHT 53 ms MV Area (PHT) 4.1 cm2 4.0-5.0 MV Diastolic Function MV E Peak Velocity 94 cm/s MV A Peak Velocity 60 cm/s MV E/A 1.6 MV Decel Time 183 ms MV Annular TDI MV E/e' (Septal) 7.6 <=8.0 MV E/e' (Lateral) 7.8 <=8.0 MV E/e' (Average) 7.7 Tricuspid Valve Name Value Normal TV Regurgitation Doppler TR Peak Velocity 176 cm/s TR Peak Gradient 12 mmHg Estimated PAP/RSVP RA Pressure 3 mmHg <=5 PA Systolic Pressure 15 mmHg <36 RV Systolic Pressure 15 mmHg <36 Aortic Valve Name Value Normal AV Doppler AV Peak Velocity 121 cm/s AV Peak Gradient 6 mmHg AV Mean Gradient 3 mmHg AV VTI 26 cm AV Area (Cont Eq VTI) 2.7 cm2 >=3.0 AV Area (Cont Eq Mike) 2.6 cm2 AV Regurgitation 2D LVOT Area 3.3 cm2 Ventricles Name Value Normal LV Dimensions 2D/MM IVS Diastolic Thickness (2D) 1.0 cm 0.6-1.0 LVID Diastole (2D) 5.0 cm 3.8-5.2 LVIW Diastolic Thickness (2D) 1.0 cm 0.6-0.9 LVID Systole (2D) 3.3 cm 2.2-3.5 LVOT Diameter 2.0 cm LV Mass (2D Cubed) 182.98 g 67.00-162.00 LV Mass Index (2D Cubed) 81 g/m2 43-95 Relative Wall Thickness (2D) 0.41 LV Fractional Shortening/Ejection Fraction 2D/MM LV Fractional Shortening (2D) 34 % 27-45 LV EF (2D Teicholz) 62 % 54-74 LV Diastolic Volume (4C MOD) 125 ml LV EF (4C MOD) 65 % LV Diastolic Volume (2C MOD) 99 ml LV EF (2C MOD) 64 % LV Diastolic Volume (BP MOD) 115 ml 46-106 LV Diastolic Volume Index (BP MOD) 51 ml/m2 29-61 LV Systolic Volume (BP MOD) 41 ml 14-42 LV Systolic Volume Index (BP MOD) 18 ml/m2 8-24 LV EF (BP MOD) 65 % 54-74 LV Diastolic Length (4C) 8.4 cm LV Systolic Length (4C) 6.6 cm LV Stroke Volume (4C MOD) 81 ml Atria Name Value Normal LA Dimensions LA Volume (4C A-L) 97 ml LA Volume (BP A-L) 61 ml RA Dimensions RA Area (4C) 20.4 cm2 <=18.0 Report Signatures
[2024-07-08 05:48] LABS: Eosinophils Percent Auto 0.4 % (0-4.4); Hematocrit 35.2 % (37.0-47.0); Lymphocytes Percent Auto 26.7 % (18.3-44.2); Mean Corpuscular HGB Conc 34.1 g/dl (32-36); Mean Corpuscular Hemoglobin 28.8 pg (26-34); Mean Corpuscular Volume 84.6 fl (80-100); Mean Platelet Volume 10.2 fl (7.4-10.4); Monocytes Absolute Auto 0.3 K/mm3 (0.1-0.6); Monocytes Percent Auto 12.6 % (2.6-8.5); Neutrophils Absolute Auto 1.6 K/mm3 (1.3-6.7); Neutrophils Percent Auto 60.3 % (45.5-73.1); Platelet Count Result 148 k/mm3 (150-375); Red Blood Count 4.16 M/mm3 (4.2-5.4); Red Cell Distribution Width 12.6 % (11.5-14.5); White Blood Count 2.6 K/mm3 (4.5-10.0)
[2024-07-08 06:03] LABS: Alanine Aminotransferase 35 U/L (6-35); Albumin Level 3.2 g/dL (3.5-5.1); Alkaline Phosphatase 49 U/L (38-126); Anion Gap 9 mmol/L (4-12); Aspartate Amino Transferase 27 U/L (14-36); Bilirubin,Total 0.7 mg/dL (0.2-1.3); Blood Urea Nitrogen 7 mg/dL (7-17); Calcium 7.8 mg/dL (8.4-10.2); Carbon Dioxide 26 mmol/L (22-30); Chloride 103 mmol/L (98-107); Estimated CRCL calculation 100 ml/min; Estimated Glomerular Filt Rate > 60; Glucose 82 mg/dL (65-110); Magnesium 1.5 mg/dL (1.6-2.3); Potassium 3.1 mmol/L (3.4-5.0); Sodium 138 mmol/L (137-145)
[2024-07-08 06:08] LABS: Lactic Acid Reflex < 0.5 mmol/L (0.7-2.0)
[2024-07-08] MEDS: LACTATED RINGERS 1,000 ML 125 ML IV CONT (06:58)
--- NOTE | 2024-07-08 09:30 | P.CONCA_ITS ---
Assessment and Plan Assessment and plan (1) Syncope: Code(s): R55 - Syncope and collapse Status: Acute Assessment and Plan: Her history is most consistent with vasovagal syncope in the setting of vomiting and dehydration. Her telemetry shows sinus tachycardia but no Scott or tachy arrhythmias that would explain syncope. She does have sinus tachycardia which is secondary to dehydration and gastro enteritis. No further cardiac workup is recommended in this regard at this time. (2) Tachycardia: Code(s): R00.0 - Tachycardia, unspecified Status: Acute Assessment and Plan: Physiologic sinus tachycardia secondary to dehydration and viral GI illness. Echocardiogram has been ordered and will be reviewed. Her heart rate has normalized at this point. (3) Gastroenteritis: Code(s): K52.9 - Noninfective gastroenteritis and colitis, unspecified Status: Acute Assessment and Plan: Fluids and supportive care. Management per hospitalist. History of Present Illness History of Present Illness Consult date/time: 07/08/24 09:30 Requesting physician: Pedro Samayoa MD Consult reason: Other (syncope, tachycardia) Reason For Visit: Syncope, nausea vomiting, tachycardia Narrative: Brianna Peck is a 33-year-old female who presents to the hospital because of vomiting and 2 syncopal episodes. This is a patient who does not have any significant past medical history and does not take any medications at home. Patient reports that she began having nausea, vomiting, and diarrhea on Friday evening. She suspected that she had food poisoning. She describes multiple episodes of vomiting and diarrhea and suspects she did lose a large amount of volume because of this. She reports having a syncopal episode while in the shower and reports having another syncopal episode immediately after an episode of vomiting. She states that the 1st time she lost consciousness in the shower, she did not have any symptoms prior to having syncope. However, when she was kneeling down over the toilet vomiting, she did feel very hot and sweaty and suspected that she was about to pass out. She denies any chest pain, shortness of breath, palpitations. She is feeling much better currently and has not had any further vomiting or diarrhea since her admission to the hospital. Review of Systems 2 Review of Systems: All systems reviewed & are unremarkable except as noted in HPI and below PMFSH Past Medical History Medical History Gestational diabetes Social History Social History Smoking status: Never smoker Alcohol intake: never Substance use: never Substance use type: does not use Do You Feel Safe in your Home?: Yes Lack of Transportation: No Lack of Food: Never True Current Housing: I Have Housing Concerned About Future Housing: No Difficulty Paying Gas/Electric Bills: No Difficulty Paying for Meds: No Currently Unemployed: No Education: Bachelor's Degree Difficulty w/ Childcare or Family Care: No Spiritual care concerns: No Meds Home Medications and Allergies Home Medications ?Medication ?Instructions ?Recorded ?Confirmed ?Type No Home Medications 07/07/24 07/07/24 History Allergies Allergy/AdvReac Type Severity Reaction Status Date / Time cephalexin (From Keflex) Allergy Hives Verified 07/07/24 13:25 Vital Signs Vital Signs - 24 hr 07/07/24 09:50 07/07/24 12:34 07/07/24 13:34 Temperature Pulse Rate 126 H 125 H Respiratory Rate 20 19 Blood Pressure 113/83 139/94 H Pulse Oximetry 98 97 Oxygen Delivery Room Air 07/07/24 14:00 07/07/24 16:00 07/07/24 20:00 Temperature 36.3 C L Pulse Rate 119 H 118 H 118 H Respiratory Rate 18 18 Blood Pressure 142/85 H Pulse Oximetry 98 98 Oxygen Delivery Room Air 07/07/24 20:00 07/07/24 22:00 07/08/24 00:00 Temperature 36.1 C L Pulse Rate 97 101 H 85 Respiratory Rate 18 Blood Pressure 97/40 L Pulse Oximetry 98 Oxygen Delivery 07/08/24 04:00 07/08/24 06:00 07/08/24 08:40 Temperature 36.6 C Pulse Rate 76 83 Respiratory Rate 18 Blood Pressure 128/74 Pulse Oximetry 99 98 Oxygen Delivery Room Air Exam 2 Const: General: comfortable, no acute distress, alert and awake O rientation/consciousness: patient oriented x3 HENMT: Head: normal to inspection Eyes: General: appearance normal, both eyes and all related structures P upils: Equal, round and reactive pupils present Neck: Neck: normal visual inspection, supple and no JVD Carotids: normal carotid upstroke Resp: Effort & Inspection: normal respiratory effort Auscultation: clear to auscultation bilaterally Cardio: Rate: regular rate Rhythm: regular rhythm Heart sounds: S1 normal heart sound present, S2 normal heart sound present and no murmurs GI: Auscultation: normal bowel sounds Skin: General skin exam: normal color Neuro: General: patient oriented x3 Cranial nerves: Yes Equal, round and reactive pupils present Extrem: General: normal to inspection Psych: Appearance: grossly normal Mental Status: mental status grossly normal Results Labs and Meds 07/08/24 05:25 07/08/24 05:25 Lab results: Cardiac Enzymes 07/08/24 Range/Units 05:25 AST 27 (14-36) U/L CBC 07/08/24 Range/Units 05:25 WBC 2.6 L (4.5-10.0) K/mm3 RBC 4.16 L (4.2-5.4) M/mm3 Hgb 12.0 (12.0-15.0) g/dL Hct 35.2 L (37.0-47.0) % Plt Count 148 L (150-375) k/mm3 Lymph # (Auto) 0.70 L (0.9-3.2) K/mm3 Dixie # (Auto) 0.3 (0.1-0.6) K/mm3 Eos # (Auto) 0.0 (0-0.3) K/mm3 Baso # (Auto) 0.0 (0.0-0.1) K/mm3 Comprehensive Metabolic Panel 07/08/24 Range/Units 05:25 Sodium 138 (137-145) mmol/L Potassium 3.1 L (3.4-5.0) mmol/L Chloride 103 (98-107) mmol/L Carbon Dioxide 26 (22-30) mmol/L BUN 7 D (7-17) mg/dL Creatinine 0.82 (0.7-1.0) mg/dL Glucose 82 (65-110) mg/dL Calcium 7.8 L (8.4-10.2) mg/dL AST 27 (14-36) U/L ALT 35 (6-35) U/L Alkaline Phosphatase 49 (38-126) U/L Total Protein 6.0 L (6.3-8.2) g/dL Albumin 3.2 L (3.5-5.1) g/dL Intake and Output 07/07/24 07/08/24 07/08/24 23:59 07:59 15:59 Intake Total 1390 1000 Balance 1390 1000 Intake: IV 1150 1000 Lactated Ringers 1,000 ml @ 125 1000 1000 mls/hr IV CONT .Q8H CM Rx#: [id number] levoFLOXacin 750 MG/D5W 150 ML 150 750 mg In 150 ml @ 100 mls/hr IVPB Q24H CM Rx#:[id number] Oral 240 Other: # Unmeasured Voids 3 3
--- NOTE | 2024-07-08 13:40 | P.DS_ITS ---
DS: Admitting Diagnosis Discharge Date 07/08/24 Admitting Diagnosis Vomiting and syncope DS: Discharge Diagnosis Discharge Diagnosis (1) Gastroenteritis: Code(s): K52.9 - Noninfective gastroenteritis and colitis, unspecified Status: Acute (2) Syncope: Code(s): R55 - Syncope and collapse Status: Acute DS: Summary Hospital Course Hospital Course: 33-year-old female past medical history of asthma presented to urine account of 2 episodes of syncope and vomiting. Patient reported she was in her usual state of health until yesterday when she had a huge 3 episodes of vomiting followed by 2 episodes of syncope. For this she was brought to the ER for further evaluation and care. Prior to that she denies any chest pain or shortness of breath no coughing no fever no abdominal pain no dysuria no focal symptoms. She also reported she has been havin diarrhea since today and had 2 episodes. ER eval notable for HR 126, BP 139/94. Labs unremarkable, CT chest showed and showed was like attenuation in the lungs with small lung volumes which would favor atelectasis with mild air trapping related to small airway disease overt pulmonary edema or pneumonia. CT abdomen and pelvis showed fluid throughout to nondilated most consistent with nonspecific diarrhea. Patient was given 3 L of fluids still tachycardic. EKG showed ST no acute changes. Patient was continued on IVF, ECHO showed normal BiVentricular function. Cardiology evaluated and recommended holter monitor. patient will fo down to cardiology office after discharge for holter monitor. CT chest showed possible airway disease and was started on Levaquin. Vomiting and diarrhea resolved. Discharged on 4 more days of Levaquin. Also managed for hypomagnesemia and Hypokalemia, repalced and discharged on 5 more days of Oral replacement. F/u with PCP in 3-5 days F/u with Cardiology as instructed Time Spent with Patient Time attestation: Total time spent providing and/or coordinating discharge services: DS: Data Data Completed and Pending Labs on day of discharge: Labs from last 24 hours 07/08/24 07/07/24 07/07/24 05:25 18:25 16:42 WBC 2.6 L RBC 4.16 L Hgb 12.0 Hct 35.2 L MCV 84.6 MCH 28.8 MCHC 34.1 RDW 12.6 Plt Count 148 L MPV 10.2 Immature Gran % (Auto) 0.0 Neut % (Auto) 60.3 Lymph % (Auto) 26.7 Miner % (Auto) 12.6 H Eos % (Auto) 0.4 Baso % (Auto) 0.0 L Lymph # (Auto) 0.70 L Miner # (Auto) 0.3 Eos # (Auto) 0.0 Baso # (Auto) 0.0 Abs Immat Gran (auto) 0.00 Absolute Neuts (auto) 1.6 Absolute Nucleated RBC 0.000 Nucleated RBC % 0.0 Sodium 138 Potassium 3.1 L Chloride 103 Carbon Dioxide 26 Anion Gap 9 BUN 7 D Creatinine 0.82 Estim Creat Clear Calc 100 Estimated GFR > 60 Glucose 82 Lactic Acid < 0.5 L Calcium 7.8 L Magnesium 1.5 L Total Bilirubin 0.7 AST 27 ALT 35 Alkaline Phosphatase 49 Total Protein 6.0 L Albumin 3.2 L Procalcitonin 0.4 Nasal MRSA (PCR) Not detected Preliminary micro results at discharge 07/07/24 18:03 Blood Culture - Preliminary Blood 07/07/24 18:25 Blood Culture - Preliminary Blood Discharge Plan Discharge Attending physician on discharge: Pedro Samayoa Consulting providers: Carolynn Fields Discharging Clinician: Pedro Samayoa Anticipated Discharge Date/Time: 07/08/24 13:35 Patient Disposition: Home, Self-Care Activity: as tolerated Diet: regular Patient Instructions: Antibiotic Form Patient Language: Lithuanian Stand Alone Forms: General Discharge Information Follow-up/Referrals: Carolynn Fields, [facility] [Advanced Practice Nurse] - (F/u with cardiology as instructed ) UNKNOWN,DOCTOR [Primary Care Provider] - (F/u with PCP in 3-5 days ) Discharge Medications: New levofloxacin 750 mg tablet 750 mg PO DAILY 4 Days Qty: 4 0RF magnesium oxide 400 mg (241.3 mg magnesium) tablet 400 mg PO DAILY 5 Days Qty: 5 0RF potassium chloride [K-Tab] 20 mEq tablet extended release 20 meq PO DAILY 5 Days Qty: 5 0RF Other Ambulatory Orders: [place] cardiac event monitor (Routine) Timeframe: 1 Month Location: [facility] [place] Cardiology Ordered By: Carolynn Fields Date of admission: 07/07/24 11:17 Primary Care Provider: UNKNOWN,DOCTOR Admitting Provider: Pedro Samayoa Attending physician on admission: Pedro Samayoa Condition: Stable
[2024-07-08] MEDS: MAGNESIUM SULF 2 GM/WATER 50ML 2 GM/50 ML BAG IVPB (13:53)
[2024-07-08] MEDS: POTASSIUM CHLORIDE 20 MEQ ER TABLET 60 MEQ PO (13:53)
== END 2024-07-08 15:50 | disposition home or self-care (01) ==
LOC: ANHED 07:26 → ANH3MEDSUR 12:03 → ANH2MED 12:41
PROVIDERS: Emergency Medicine; Admitting Provider Internal Medicine; Emergency Provider Emergency Medicine; PCP Nurse Practitioner Family; Visit Provider Internal Medicine
DX: K52.9 Noninfective gastroenteritis and colitis, unspecified (principal); R55 Syncope and collapse; R00.0 Tachycardia, unspecified; E86.0 Dehydration; E83.42 Hypomagnesemia; E87.6 Hypokalemia; J45.909 Unspecified asthma, uncomplicated; Z20.822 Contact with and (suspected) exposure to COVID-19
CPT/HCPCS: 36415; 71275; 74177; 80053; 81003; 81025; 83605; 83690; 83735; 84145; 84439; 84443; 84480; 85025; 87040; 87637; 87641; 93005; 93306; 96361; 96365; 96366; 96374; 96375; 96376; 99285; A9270; G0378; J1885; J1956; J2405; J3475; J7030; J7120; Q9967